=== PATIENT | female | born 1955 | race Caucasian/White ===

== ENCOUNTER 2017-03-08 00:34 | Emergency (ER) | payer OTHER ==
[2017-03-08] MEDS ORDERED: Morphine 4 MG/ML Carpuject ONE (01:01)
[2017-03-08] MEDS ORDERED: Ketorolac Tromethamine 30 MG/ML VIAL ONE (01:01)
[2017-03-08] MEDS ORDERED: diphenhydrAMINE 50 MG/ML VIAL ONE (01:01)
[2017-03-08 01:18] LABS: INR-International Normal Ratio 0.9; Prothrombin Time 12.7 SEC (12.0-14.7)
[2017-03-08 01:19] LABS: PTT 32.9 SEC (22.9-36.1)
[2017-03-08 01:20] LABS: Bilirubin Negative (Negative); Blood, Urine Large (Negative); Clarity Cloudy (Clear); Glucose, Urine (Dipstick) Negative (Negative); Leukocyte Negative (Negative); Nitrite Negative (Negative); Protein, Urine (Dipstick) Trace mg/dL (Neg-Trace); Specific Gravity, Urine 1.025 (1.005-1.030); Urobilinogen 0.2 mg/dL (0.2-1.0)
[2017-03-08 01:21] LABS: RBC/HPF GREATER THAN 50-TNTC HPF (0-3)
[2017-03-08 01:22] LABS: Squamous Epithelial 0-3 HPF (0-3); WBC/HPF 0-3 HPF (0-3)
[2017-03-08 01:24] LABS: Bacteria/HPF 1+ HPF (None Seen); Hyaline Casts/LPF 0-3 HYALINE CAST LPF (0-3 Hyaline); Yeast-All Forms 2+ HPF (None Seen)
[2017-03-08 01:25] LABS: ALT (SGPT) 14 U/L (8-55); AST (SGOT) 15 U/L (5-34); Albumin 3.9 g/dL (3.4-4.8); Alkaline Phosphatase 69 U/L (40-150); Anion Gap 13 mmol/L (10-20); BUN (Urea Nitrogen) 20 mg/dL (9.8-20.1); Bilirubin, Total 0.5 mg/dL (0.2-1.2); Calc. Creatinine Clearance 0 mL/min (70-130); Calcium 9.4 mg/dL (7.8-10.44); Carbon Dioxide 22 mmol/L (23-31); Chloride 109 mmol/L (98-107); Estimated GFR-MDRD 74; Globulin 2.8 g/dL (2.4-3.5); Glucose 126 mg/dL (80-115); Potassium 3.7 mmol/L (3.5-5.1); Protein, Total 6.7 g/dL (6.0-8.3); Sodium 140 mmol/L (136-145)
[2017-03-08 01:28] LABS: #Basophils 0.1 thou/uL (0.0-0.2); #Eosinphils 0.1 thou/uL (0.0-0.7); #Lymphocytes 1.8 thou/uL (1.20-3.40); #Monocytes 0.4 thou/uL (0.11-0.59); #Neutrophils 4.3 thou/uL (1.40-6.50); %Basophils 1.4 % (0.0-1.0); %Lymphocytes 26.5 % (21.0-51.0); %Monocytes 5.8 % (0.0-10.0); %Neutrophils 64.4 % (42.0-75.0); Hemoglobin 13.4 g/dL (12.0-16.0); Mean Corpuscular Hemoglobin 29.8 pg (27.0-31.0); Mean Corpuscular Volume 87.9 fl (81.0-99.0); Mean Platelet Volume 7.1 fL (7.4-10.4); Platelet Count 273 thou/uL (130-400); RBC Distribution Width 11.5 % (11.5-14.5); Red Blood Cell (RBC) Count 4.48 mill/uL (4.20-5.40); White Blood Cell (WBC) Count 6.6 thou/uL (4.8-10.8)
[2017-03-08] MEDS ORDERED: Tamsulosin HCl 0.4 MG CAP PO SCH (02:00)
[2017-03-08] MEDS ORDERED: traMADol HCl 50 MG TAB ONE (02:27)
--- NOTE | 2017-03-08 07:36 | CT ---
PRELIMINARY REPORT/[facility]/EMERGENCY AFTER HOURS PROCEDURE: EXAM: CT Abdomen and Pelvis Without Intravenous Contrast CLINICAL HISTORY: 61 years old, female; Pain; Abdominal pain; Acute; Patient HX: Rt. Side pain with blood in urine TECHNIQUE: Axial computed tomography images of the abdomen and pelvis without intravenous contrast. COMPARISON: No relevant prior studies available. FINDINGS: Lower thorax: No acute findings. ABDOMEN: Liver: Normal. Gallbladder and bile ducts: Normal. Pancreas: Normal. Spleen: Normal. Adrenals: Normal. Kidneys and ureters: Right hydroureteronephrosis, with obstructive 2 mm calculus in the right distal ureter. Stomach and bowel: Moderate amount of stool throughout the colon, without obstruction. Appendix: No findings to suggest acute appendicitis. PELVIS: Bladder: Normal. Reproductive: Normal as visualized. ABDOMEN and PELVIS: Intraperitoneal space: Normal. No free air. No significant fluid collection. Bones/joints: Multilevel thoracolumbar spine degenerative changes. No acute fracture. No dislocation. Soft tissues: Small fat-containing umbilical hernia. Vasculature: Phleboliths in the pelvis. No abdominal aortic aneurysm. Lymph nodes: Normal. IMPRESSION: 1. Right hydroureteronephrosis, with obstructive 2 mm calculus in the right distal ureter. 2. Incidental/non-acute findings are described above. Thank you for allowing us to participate in the care of your patient. Dictated and Authenticated by: Navarro Pollard MD 03/08/2017 2:21 AM Central Time ([place] & [place]) FINAL REPORT CT ABDOMEN AND PELVIS WITHOUT CONTRAST: DATE: 03/08/17. FINDINGS: The lung bases are clear, except for some minor areas of scarring. The liver, spleen, pancreas, gall bladder, adrenal glands, and abdominal aorta showed no acute findings. Major finding on the study is a small 2 mm distal right ureteral calculus that is causing moderate right hydronephrosis. It is lo cated just a few centimeters above the right UVJ. No renal calculi are seen. The kidneys otherwise were unremarkable. The bowel is nondistended with no sign of obstruction or inflammatory change around it. A moderate a mount of fecal material was seen in the colon, especially the right colon. There might be a little h aziness in the root of the mesentery of the small bowel, but this an equivocal finding. No free air or free fluid was seen. CT of the pelvis showed no pelvis masses, fluid collections, or inflammatory changes. IMPRESSION: A 2 mm distal right ureteral calculus causing moderate right hydronephrosis. Report in agreement with preliminary reading by [facility]. POS: HOME
== END 2017-03-08 02:40 | disposition home or self-care (01) ==
LOC: BURERS 00:34
DX: N13.2 Hydronephrosis with renal and ureteral calculous obstruction (principal); I10 Essential (primary) hypertension; Z79.899 Other long term (current) drug therapy
CPT/HCPCS: 36415; 74176; 80053; 81003; 81015; 85025; 85610; 85730; 94760; 96374; 96375; J1200; J1885; J2270

== ENCOUNTER 2024-05-17 06:35 | Emergency (ER) | payer OTHER ==
[2024-05-17 07:36] LABS: #Basophils 0.1 thou/uL (0.0-0.2); #Eosinophils 0.1 thou/uL (0.0-0.7); #Lymphocytes 1.2 thou/uL (1.20-3.40); #Monocytes 0.3 thou/uL (0.11-0.59); #Neutrophils 4.3 thou/uL (1.40-6.50); %Eosinophils 1.6 % (0.0-10.0); %Lymphocytes 19.7 % (21.0-51.0); %Monocytes 5.1 % (0.0-10.0); %Neutrophils 72.7 % (42.0-75.0); Hematocrit 40.5 % (36.0-47.0); Hemoglobin 13.7 g/dL (12.0-16.0); Mean Corpuscular HGB CONC 33.9 g/dL (32.0-36.0); Mean Corpuscular Hemoglobin 28.8 pg (27.0-31.0); Mean Corpuscular Volume 84.8 fl (78.0-98.0); Mean Platelet Volume 8.1 fL (7.4-10.4); Platelet Count 279 10x3/uL (130-400); RBC Distribution Width 11.3 % (11.5-14.5); Red Blood Cell (RBC) Count 4.78 mill/uL (4.20-5.40); White Blood Cell (WBC) Count 5.9 10x3/uL (4.8-10.8)
[2024-05-17 07:40] LABS: Bilirubin Negative (Negative); Blood, Urine Negative (Negative); Clarity Clear (Clear); Glucose, Urine (Dipstick) Negative (Negative); Ketone, Urine Negative (Negative); Leukocyte Negative (Negative); Nitrite Negative (Negative); Protein, Urine (Dipstick) Negative (Neg-Trace); Urobilinogen 0.2 mg/dL (Less than 2); pH, Urine 5.5 (5.0-9.0)
[2024-05-17 07:46] LABS: Specific Gravity, Urine 1.004 (1.002-1.036)
[2024-05-17 07:50] LABS: ALT (SGPT) 11 U/L (Less than 34); AST (SGOT) 17 U/L (11-34); Albumin 4.3 g/dL (3.1-4.5); Alkaline Phosphatase 84 U/L (40-110); Anion Gap 13 mmol/L (10-20); BUN (Urea Nitrogen) 24 mg/dL (9.8-20.1); Bilirubin, Total 0.4 mg/dL (0.3-1.2); Calc. Creatinine Clearance 0 mL/min (70-130); Calcium 9.8 mg/dL (7.8-10.44); Carbon Dioxide 24 mmol/L (23-31); Chloride 112 mmol/L (98-107); Estimated GFR 84; Glucose 82 mg/dL (80-115); Potassium 4.1 mmol/L (3.5-5.1); Protein, Total 7.3 g/dL (5.8-8.1); Sodium 145 mmol/L (136-145)
[2024-05-17 07:54] LABS: Troponin I Less than 0.010 ng/mL (< 0.028)
[2024-05-17 07:57] LABS: Bacteria/HPF Rare-Few HPF (None Seen); CAUTI Indications for Culture Dysuria,urgency,freq; RBC/HPF None Seen HPF (0-3); Squamous Epithelial 0-3 HPF (0-3); WBC/HPF 0-3 HPF (0-3)
[2024-05-17 07:58] LABS: Urine Culture Reflex No No
[2024-05-17] MEDS ORDERED: Aspirin Chewable 81 MG TAB ONE (08:09)
[2024-05-17] MEDS ORDERED: Aspirin 325 MG TAB ONE (08:10)
[2024-05-17] MEDS ORDERED: Acetaminophen 500 MG TAB ONE (10:42)
== END 2024-05-17 16:42 | disposition short-term general hospital (02) ==
LOC: BURERS 06:35
DX: G45.9 Transient cerebral ischemic attack, unspecified (principal); R29.700 NIHSS score 0; I10 Essential (primary) hypertension; E03.9 Hypothyroidism, unspecified; Z79.899 Other long term (current) drug therapy
CPT/HCPCS: 70450; 71045; 80053; 81001; 84484; 85025; 93005; 96360; 96361